=== PATIENT | female | born 1935 | race African-American/Black ===

== ENCOUNTER → 2018-05-30 | Outpatient (CLI) | payer MEDICARE | END | disposition home or self-care (01) | LOC: CFH 12:37 | PROVIDERS: ATTEND Internal Medicine | DX: Z13.820 Encounter for screening for osteoporosis (principal); Z12.31 Encounter for screening mammogram for malignant neoplasm of breast; M85.88 Other specified disorders of bone density and structure, other site; N95.1 Menopausal and female climacteric states | CPT/HCPCS: 77063; 77080; 77067 ==

== ENCOUNTER → 2019-07-03 | Outpatient (CLI) | payer MEDICARE | END | disposition home or self-care (01) | LOC: CFH 10:19 | PROVIDERS: ATTEND Internal Medicine | DX: Z12.31 Encounter for screening mammogram for malignant neoplasm of breast (principal); N64.89 Other specified disorders of breast | CPT/HCPCS: 77063; 77067 ==

== ENCOUNTER → 2019-07-16 | Outpatient (CLI) | payer MEDICARE | END | disposition home or self-care (01) | LOC: CFH 12:58 | PROVIDERS: ATTEND Internal Medicine | DX: R92.1 Mammographic calcification found on diagnostic imaging of breast (principal) | CPT/HCPCS: 77065 ==

== ENCOUNTER → 2019-11-17 | Outpatient (CLI) | payer MEDICARE ==
[~2019-11-17] MED LIST: AMLO10TA8 PO; CARV3.122 PO; LOSA25TA25 PO; MELO7.5T31 PO; SIMV10TA18 PO
[2019-11-17 10:31] LABS: ALANINE AMINOTRANSFERASE 16 U/L (12-78); ALBUMIN 3.7 g/dL (3.4-5.0); ANION GAP 10 mmol/L (5-15); CALCIUM 9.1 mg/dL (8.5-10.1); CHLORIDE 109 mmol/L (98-107)
[2019-11-17 10:32] LABS: ALKALINE PHOSPHATASE 54 U/L (45-117); BILIRUBIN,TOTAL 0.3 mg/dL (0.2-1.0); TOTAL PROTEIN 7.9 g/dL (6.4-8.2)
== END | disposition home or self-care (01) ==
LOC: STAR 09:08
PROVIDERS: ATTEND Surgery
DX: Z01.818 Encounter for other preprocedural examination (principal); I25.89 Other forms of chronic ischemic heart disease; D05.11 Intraductal carcinoma in situ of right breast
CPT/HCPCS: 36415; 80053; 93005

== ENCOUNTER 2019-11-21 08:47 | Day surgery (SDC) | payer MEDICARE ==
[~2019-11-21] VITALS: Ht 144.8 cm; Wt 54.0 kg
[2019-11-21] MEDS ORDERED: hydrALAzine 20 MG/ML, 1ML IV PRN (10:00)
[2019-11-21] MEDS ORDERED: LORazepam 2 MG/ML, 1ML IVPush PRN (10:00)
[2019-11-21] MEDS ORDERED: OXYcodone 5 MG/5 ML ORAL.SOL UDC PO PRN (10:00)
[2019-11-21] MEDS ORDERED: HYDROcodone/APAP 7.5-325MG/15ML UDC PO PRN (10:00)
[2019-11-21] MEDS ORDERED: EPHEDRINE 50 MG/ML, 1ML IVPush PRN (10:00)
[2019-11-21] MEDS ORDERED: DIPHENHYDRAMINE 50 MG/ML, 1ML IVPush PRN (10:00)
[2019-11-21] MEDS ORDERED: ONDANSETRON 2MG/ML, 2ML IVPush PRN (10:00)
[2019-11-21] MEDS ORDERED: HYDROmorphone 1 MG/ML, 1ML INJ IVPush PRN (10:00)
[2019-11-21] MEDS ORDERED: LABETALOL 5MG/ML, 20ML IV PRN (10:00)
[2019-11-21] MEDS ORDERED: MEPERIDINE/PF 25MG/0.5ML IVPush PRN (10:00)
[2019-11-21] MEDS ORDERED: FENTANYL PF 100 MCG/2ML IV PRN (10:00)
[2019-11-21] MEDS ORDERED: MIDAZOLAM 1 MG/ML, 2ML IV PRN (10:00)
[2019-11-21] MEDS ORDERED: METOCLOPRAMIDE 5 MG/ML, 2ML IVPush PRN (10:00)
[2019-11-21] MEDS ORDERED: EPHEDRINE 50 MG/ML, 1ML IM PRN (10:00)
[2019-11-21] MEDS ORDERED: DIAZEPAM 5 MG/ML, 2ML IVPush PRN (10:00)
[2019-11-21] MEDS ORDERED: ALBUTEROL/IPRATROPIUM 2.5MG/0.5MG, 3 ML NPPB PRN (10:00)
[2019-11-21] MEDS ORDERED: KETOROLAC 30 MG/1 ML IV PRN (10:00)
[2019-11-21] MEDS ORDERED: HALOPERIDOL 5 MG/ML IV PRN (10:00)
[2019-11-21] MEDS ORDERED: CHLORHEXIDINE 15 ML UDC MM STA (10:22)
[2019-11-21] MEDS ORDERED: LACTATED RINGERS 1,000 ML IV STA (10:23)
[2019-11-21 10:45] VITALS: BP 153/78
[2019-11-21] MEDS ORDERED: LIDOCAINE-MPF 1%, 2ML INFIL STA (10:50)
[2019-11-21] MEDS ORDERED: ROCURONIUM 10MG/ML,5ML ONE (11:13)
[2019-11-21] MEDS ORDERED: DEXAMETHASONE 4 MG/ML, 1ML ONE (11:13)
[2019-11-21] MEDS ORDERED: LIDOCAINE-MPF 2% ,5ML ONE (11:13)
[2019-11-21] MEDS ORDERED: GLYCOPYRROLATE 0.2MG/1ML, 5ML ONE (11:13)
[2019-11-21] MEDS ORDERED: FENTANYL PF 100 MCG/2ML ONE (11:14)
[2019-11-21] MEDS ORDERED: MIDAZOLAM 1 MG/ML, 2ML ONE (11:14)
[2019-11-21] MEDS ORDERED: PHENYLEPHRINE 10 MG/ML ONE (11:55)
[2019-11-21] MEDS ORDERED: CEFAZOLIN 1,000 MG ONE (11:55)
[2019-11-21] MEDS ORDERED: BUPIVACAINE/PF-EPI 0.5% 1:200K INFIL ONE (12:08)
[2019-11-21] MEDS ORDERED: LIDOCAINE 1%, 20ML ONE (13:14)
[2019-11-21] MEDS ORDERED: LIDOCAINE 1%-EPI 1:100K, 20ML ONE (13:14)
[2019-11-21] MEDS ORDERED: SODIUM BICARBONATE 4.2%, 5ML ONE (13:14)
[2019-11-21] MEDS ORDERED: METOCLOPRAMIDE 5 MG/ML, 2ML ONE (13:26)
[2019-11-21] MEDS ORDERED: ONDANSETRON 2MG/ML, 2ML ONE (13:26)
== END 2019-11-21 15:00 | disposition home or self-care (01) ==
LOC: OUT 08:47 → CFH 15:00
PROVIDERS: ATTEND Surgery
DX: R92.0 Mammographic microcalcification found on diagnostic imaging of breast (principal); Z11.59 Encounter for screening for other viral diseases; D05.91 Unspecified type of carcinoma in situ of right breast; I10 Essential (primary) hypertension; M19.90 Unspecified osteoarthritis, unspecified site; Z79.899 Other long term (current) drug therapy
CPT/HCPCS: 19125; 19281; 76098; 88307; J0690; J1100; J2250; J2370; J2405; J2765; J3010; J3490; U0001

== ENCOUNTER → 2021-01-06 | Outpatient (CLI) | payer MEDICARE ==
[~2021-01-06] MED LIST changes: +AMLO-211 PO; -AMLO10TA8 PO
== END | disposition home or self-care (01) ==
LOC: ROC 09:21
PROVIDERS: ATTEND Radiology Radiation Oncology
DX: D05.11 Intraductal carcinoma in situ of right breast (principal); I12.9 Hypertensive chronic kidney disease with stage 1 through stage 4 chronic kidney disease, or unspecified chronic kidney disease; N18.9 Chronic kidney disease, unspecified
CPT/HCPCS: 99214; G0463

== ENCOUNTER 2021-01-28 15:23 | Emergency (ER) | payer MEDICARE ==
[~2021-01-28] VITALS: Ht 144.8 cm; Wt 47.8 kg
[2021-01-28 16:01] LABS: BASOPHILS % (AUTO) 1 % (0-1); EOSINOPHILS % (AUTO) 2 % (1-7); LYMPHOCYTES % (AUTO) 33 % (22-44); MEAN CORPUSCULAR HEMOGLOBIN 28.2 pg (27.0-34.8); MEAN CORPUSCULAR HGB CONC 32.4 g/dL (32.4-35.8); MEAN PLATELET VOLUME 7.7 fL (7.4-10.4); MONOCYTES % (AUTO) 12 % (2-9); NEUTROPHILS % (AUTO) 52 % (42-75); PLATELET COUNT 360 x10^3/uL (130-400); RED BLOOD COUNT 3.53 x10^6/uL (3.82-5.3); RED CELL DISTRIBUTION WIDTH 16.5 % (9.6-15.2)
[2021-01-28 16:32] LABS: ALANINE AMINOTRANSFERASE 16 U/L (12-78); ALKALINE PHOSPHATASE 71 U/L (45-117); ANION GAP 9 mmol/L (5-15); BILIRUBIN,TOTAL 0.3 mg/dL (0.2-1.0); CALCIUM 9.2 mg/dL (8.5-10.1); CHLORIDE 108 mmol/L (98-107); CREATININE 1.73 mg/dL (0.55-1.02); TOTAL PROTEIN 7.5 g/dL (6.4-8.2)
--- NOTE | 2021-01-28 17:41 | NUR ---
machine operators note: Pt to room from lobby via wheelchair.
[2021-01-28 18:11] VITALS: BP 124/59
--- NOTE | 2021-01-28 18:11 | NUR ---
PT WC'D TO ROOM 18 W/ C/O "PEEING A LOT RECENTLY SOMETIMES I CAN'T CONTROL IT". PT ALSO HAS C/O R SIDE FLANK PPAIN. PT STATES IT STARTED ABOUT 3 MONTHS AGO. DENIES INCREASING OR WORSENIING PAIN BUT WAS SENT OVER BY DR. GRAHAM. PT RESTING ON [facility]. NADN. MONITORS APPLIED. VSS. WARM BLANKET PROVIDED. CALL LIGHT IN REACH.
[2021-01-28 18:37] LABS: MICROSCOPIC INDICATED
--- NOTE | 2021-01-28 19:14 | NUR ---
PT RESTING ON GURNEY. NADN. ZALDIVAR.
--- NOTE | 2021-01-28 19:16 | NUR ---
PT CHART REVIEWED AND PLACED FOR RECHECK.
== END 2021-01-28 19:56 | disposition home or self-care (01) ==
LOC: ED 19:16
DX: N39.0 Urinary tract infection, site not specified (principal); N13.30 Unspecified hydronephrosis; I12.9 Hypertensive chronic kidney disease with stage 1 through stage 4 chronic kidney disease, or unspecified chronic kidney disease; N18.9 Chronic kidney disease, unspecified; D25.9 Leiomyoma of uterus, unspecified; M54.5 Low back pain; Z85.3 Personal history of malignant neoplasm of breast
CPT/HCPCS: 36415; 74176; 80053; 81001; 85025; 87077; 87086; 87186; 99285

== ENCOUNTER 2021-02-01 12:02 | Outpatient (CLI) | payer MEDICARE | END 2021-02-01 23:59 | disposition home or self-care (01) | LOC: CFH 12:02 | PROVIDERS: ATTEND Internal Medicine Hematology & Oncology | DX: D05.11 Intraductal carcinoma in situ of right breast (principal); Z85.3 Personal history of malignant neoplasm of breast | CPT/HCPCS: 77062; 77066; G0279 ==